=== PATIENT | male | born 1975 | race Caucasian/White ===

== ENCOUNTER 2017-02-16 19:23 | Emergency (ER) | payer OTHER ==
[~2017-02-16] VITALS: Ht 167.6 cm; Wt 102.1 kg
[2017-02-16 19:23] VITALS: BP_SYST 145
--- NOTE | 2017-02-16 19:23 | NUR ---
Patient to ER bed 3 to gown for evaluation. Side rails up. Report given to Rosa TEE.
--- NOTE | 2017-02-16 19:30 | NUR ---
Patient AOx4, presents to ED via wheelchair with complaint of left lateral ankle swelling and pain 7/10 post fall playing soccer. No open areas noted. No acute distress noted.
--- NOTE | 2017-02-16 19:43 | NUR ---
CARRILLO Corbett at bedside examining patient.
[2017-02-16] MEDS ORDERED: DIPHENHYDRAMINE INJ 50 MG/ML VIAL IM ONE (19:45)
[2017-02-16] MEDS ORDERED: MORPHINE 4 MG/ML INJ. SYRINGE IM ONE (19:45)
--- NOTE | 2017-02-16 20:30 | NUR ---
No adverse reactions noted after medication administration. Will continue to monitor.
[2017-02-16 21:05] VITALS: BP_SYST 132
--- NOTE | 2017-02-16 21:05 | NUR ---
Patient given written and verbal discharge instructions and verbalizes understanding. ER MD discussed with patient the results and treatment provided. Patient in stable condition. ID arm band removed. Rx of Motrin given. Patient educated on pain management and to follow up with PMD. Pain Scale 2/10 tolerable to patient. Opportunity for questions provided and answered.
== END 2017-02-16 21:05 | disposition home or self-care (01) ==
LOC: SED 19:23
DX: S93.492A Sprain of other ligament of left ankle, initial encounter (principal); Z88.6 Allergy status to analgesic agent; I10 Essential (primary) hypertension; X58.XXXA Exposure to other specified factors, initial encounter; Y93.66 Activity, soccer; Y92.322 Soccer field as the place of occurrence of the external cause; Y99.8 Other external cause status
CPT/HCPCS: 29515; 73610; 96372; 99284; J1200; J2270

== ENCOUNTER 2017-06-07 17:17 | Emergency (ER) | payer OTHER ==
[~2017-06-07] VITALS: Ht 167.6 cm; Wt 108.9 kg
[2017-06-07 17:20] VITALS: BP_SYST 163
--- NOTE | 2017-06-07 17:26 | NUR ---
Patient to ER bed 05 to gown for evaluation. Side rails up. Report given to Mega TEE.
[2017-06-07] MEDS ORDERED: HYDROmorphone 1 MG INJ. 1 MG/ML AMPUL IVP ONE (17:30)
[2017-06-07] MEDS ORDERED: NACL 0.9% 1,000 ML IV ONE (17:30)
[2017-06-07] MEDS ORDERED: ONDANSETRON HCL 4 MG/2 ML VIAL IVP ONE (17:30)
--- NOTE | 2017-06-07 17:30 | NUR ---
Patient to ER via triage with c/o nausea, vomiting, headache and dizziness since this am. Patient is awake, alert and oriented in no acute distress. Patient able to ambulate to bed from wheelchair without difficulty with slow, steady gait. Awaiting evaluation by ER MD, will continue to observe and assess.
--- NOTE | 2017-06-07 17:35 | NUR ---
Dr Navarro at bedside to evaluate patient.
[2017-06-07 18:02] LABS: BASOPHILS % (AUTO) 0.4 % (0.0-2.0); EOSINOPHILS # (AUTO) 0.1 K/uL (0.0-0.4); EOSINOPHILS % (AUTO) 0.7 % (0.0-4.0); HEMOGLOBIN 15.3 g/dL (14.0-18.0); LYMPHOCYTES # (AUTO) 1.9 K/uL (1.0-5.5); LYMPHOCYTES % (AUTO) 17.9 % (20.5-51.5); MONOCYTES # (AUTO) 0.3 K/uL (0.0-1.0); MONOCYTES % (AUTO) 2.6 % (1.7-9.3); NEUTROPHILS % (AUTO) 78.4 % (40.0-70.0)
[2017-06-07 18:07] LABS: HEMATOCRIT 48.2 % (36-54); MEAN CORPUSCULAR HEMOGLOBIN 26 pg (27-31); MEAN CORPUSCULAR HGB CONC 32 % (32-36); MEAN CORPUSCULAR VOLUME 82 fL (79.0-98.0); NEUTROPHILS # (AUTO) 8.4 K/uL (1.8-7.7); PLATELET COUNT (AUTO) 394 K/uL (130-430); RED BLOOD CELL COUNT(AUTO) 5.87 MIL/uL (4.2-6.2); RED CELL DISTRIBUTION WIDTH 12.6 % (9.0-15.0); WHITE BLOOD COUNT (AUTO) 10.7 K/uL (4.8-10.8)
--- NOTE | 2017-06-07 18:35 | NUR ---
Patient resting quietly in no acute distress. IVF infusing without difficulty-no redness or swelling noted at site.
[2017-06-07] MEDS ORDERED: PROCHLORPERAZINE EDISYLATE 10 MG/2 ML VIAL IVP ONE (18:45)
[2017-06-07 19:03] LABS: CALCIUM 9.3 mg/dL (8.4-11.0); CREATININE 1.02 mg/dL (0.55-1.30); POTASSIUM 3.8 mmol/L (3.5-5.1)
[2017-06-07 19:08] LABS: ALBUMIN 3.8 g/dL (3.4-4.8); TOTAL BILIRUBIN 0.5 mg/dL (0.0-1.0)
--- NOTE | 2017-06-07 19:11 | NUR ---
Recieved report from Mega TEE. Will assume care at this time.
[2017-06-07 19:47] VITALS: BP_SYST 121
--- NOTE | 2017-06-07 19:47 | NUR ---
Patient given written and verbal discharge instructions and verbalizes understanding. ER MD discussed with patient the results and treatment provided. Patient in stable condition. ID arm band removed. IV catheter removed intact and dressing applied, no active bleeding. Rx of Tylenol, Tamiflu and Zofran given. Patient educated on pain management and to follow up with PMD. Pain Scale 3/10 tolerable for patient. Opportunity for questions provided and answered.
== END 2017-06-07 19:47 | disposition home or self-care (01) ==
LOC: SED 17:17
DX: B34.9 Viral infection, unspecified (principal); R03.0 Elevated blood-pressure reading, without diagnosis of hypertension; Z88.6 Allergy status to analgesic agent; Z88.5 Allergy status to narcotic agent
CPT/HCPCS: 36415; 80053; 82150; 85025; 86710; 96361; 96374; 96375; 99284; J0780; J1170; J2405; J7030